=== PATIENT | male | born 1975 | race Caucasian/White ===

== ENCOUNTER 2023-02-27 13:15 | Emergency (ER) | payer OTHER, MEDICAID, SELFPAY ==
--- NOTE | 2023-02-27 13:18 | XR_ITS ---
WS: [id number] Left knee, 3 views, 02/27/2023 Clinical Data: injury Comparison: None. Findings: No fractures or dislocations are seen. The joint spaces are normal. The patella is intact. The soft t issues are unremarkable. Impression: Negative left knee. Kellgren-Harpreet Classification: grade 0 (none): definite absence of x-ray changes of osteoarthritis
[2023-02-27 13:21] VITALS: BP 166/78; PULSE 77; RESP 16; TEMP 36.9; O2SAT 98; BMI 26.6
--- NOTE | 2023-02-27 13:43 | W.ED.EXTPRO ---
HPI - Extremity Problem General: Chief complaint: Extremity Injury, Lower Stated complaint: Lt Knee Inj Time Seen by Provider: 02/27/23 13:33 Source: patient Mode of arrival: ambulatory History of Present Illness: 47-year-old male presents emergency room with left knee pain. Patient twisted his knee felt a popping sensation has some swelling in the posterior aspect of the knee that. This occurred yesterday around 5 has been able to walk on it since but has been somewhat tender. No other injury. No previous surgery to the knee. MD Complaint: joint pain Onset (ago): minute(s) Pain Consistency: constant Location: left and knee Quality: sharp Relieving factors: nothing Exacerbating factors: nothing Associated symptoms: Deny arthralgias, chest pain, fever(s), myalgias, rash or short of breath Review of Systems Const: Denies: fever(s) Card: Denies: chest pain Resp: Denies: dyspnea GI: Denies: abdominal pain : Denies: dysuria, urinary frequency or urinary urgency Musc: Denies: neck pain or back pain Skin/Breast: Denies: rash Physical Exam Const: COMMON NORMALS: no acute distress GENERAL APPEARANCE: cooperative and comfortable ORIENTATION/CONSCIOUSNESS: Yes awake, Yes oriented to person, Yes oriented to place and Yes oriented to time HENMT: COMMON NORMALS: normocephalic, atraumatic and hearing grossly normal bilaterally HEAD & SCALP: normocephalic and atraumatic Resp: COMMON NORMALS: normal respiratory effort, No retractions and No use of accessory muscles Extremity: COMMON NORMALS: normal to inspection, capillary refill normal, no clubbing, cyanosis or edema, no calf tenderness and no pedal edema OTHER: Exam of the knee no ligamentous instability or laxity fullness in the popliteal fossa with mild tenderness Neuro: SENSORIUM/ORIENTATION: Yes oriented to person, Yes oriented to place and Yes oriented to time Skin: COMMON NORMALS: no rashes or lesions noted GENERAL SKIN EXAM: no rashes or lesions noted Course Vital Signs: Vital signs: Vital Signs Temperature 98.5 F 02/27/23 13:21 Pulse Rate 77 02/27/23 13:21 Respiratory Rate 16 02/27/23 13:21 Blood Pressure 166/78 02/27/23 13:21 Pulse Oximetry 98 02/27/23 13:21 MDM - Extremity (Nontraumatic) Medical Decision Making Examination of the knees popliteal fullness suggestive of a De La Cruz's cyst or recently ruptured De La Cruz's cyst no ligamentous instability or laxity no joint effusion. Some tenderness discomfort with attempts at flexion extension neurovascularly is intact no instability to the joint. Patient had hoped to have an MRI to evaluate for ACL or meniscus injury. Discussed with him that these are usually deferred to the outpatient setting will refer to Ortho or primary care. Patient declined knee brace states he had one at home also declined crutches. Medical Records I reviewed the patient's medical records. All radiology interpretation(s) finalized by discharge Discharge Plan Discharge Patient Disposition: Home Clinical Impression: Knee pain, left Condition: Stable Prescriptions: New diclofenac sodium 75 mg tablet,delayed release (DR/EC) 75 mg PO Q12H PRN (Reason: pain) Qty: 20 0RF Discharge Orders: Discharge ED (Routine); Ordered 02/27/23 Ordered By: Hussein Garibay Referrals: [facility] Suazo [Primary Care Provider] - Discharge Activity: Increase activity as tolerated Patient Instructions: Opioid Safety, Pain Management Activity Restrictions/Additional Instructions: [facility] you [facility] healthcare needs today. Please realize this is an emergency room and that we are providing you with a medical screening exam and this may not be complete and all inclusive of all the testing and or work up that you may need to determine your ailment or severity of your illness. It is very important that you follow up as instructed or that you return to the Emergency Department should you have concerns or if your condition changes or worsens in any way. plastic manager will make arrangements for you to follow-up with orthopedics. Use ice and anti-inflammatories as needed to help with pain and discomfort in the knee. Coding Level of Care Code ED [employer] for Skyler Velazquez
--- NOTE | 2023-02-27 14:06 | DCPLANNER ---
Message sent to office for follow up on left knee pain.
== END 2023-02-27 14:11 | disposition home or self-care (01) ==
PROVIDERS: Emergency Provider Family Medicine; PCP Family Medicine
DX: M25.562 Pain in left knee (principal)
CPT/HCPCS: 73562; 99283